=== PATIENT | female | born 1980 | race Caucasian/White ===

== ENCOUNTER 2023-01-09 13:53 | Emergency (ER) | payer MEDICARE, OTHER ==
[2023-01-09] MEDS ORDERED: Ondansetron PF 4 MG/2 ML Vial ONE (14:19)
== END 2023-01-09 16:35 | disposition home or self-care (01) ==
LOC: ERS 13:53
DX: T17.320A Food in larynx causing asphyxiation, initial encounter (principal); E11.9 Type 2 diabetes mellitus without complications; K21.9 Gastro-esophageal reflux disease without esophagitis; Z79.82 Long term (current) use of aspirin; Z79.899 Other long term (current) drug therapy
CPT/HCPCS: 71045; 96374; J2405

== ENCOUNTER 2023-02-07 13:29 | Outpatient (CLI) | payer MEDICARE, OTHER | END 2023-02-07 13:30 | disposition home or self-care (01) | LOC: CT 13:29 | PROVIDERS: ATTEND Urology | DX: Z87.442 Personal history of urinary calculi (principal); Z98.890 Other specified postprocedural states | CPT/HCPCS: 74176 ==